=== PATIENT | male | born 1990 | race Caucasian/White ===

== ENCOUNTER 2017-04-01 21:05 | Emergency (ER) | payer OTHER ==
[~2017-04-01] VITALS: Ht 167.6 cm; Wt 90.4 kg
[2017-04-01 21:19] VITALS: BP 148/96; PULSE 118; RESP 18; TEMP 99.3; O2SAT 97
[2017-04-01] MEDS ORDERED: oxyCODONE/ACETAMINOPHEN 5 MG/325 MG TAB PO ONE (21:45)
[2017-04-01] MEDS ORDERED: LIDOCAINE HCL 1% 50 ML VIAL INFIL ONE (21:45)
--- NOTE | 2017-04-01 22:40 | PD ---
HPI Chief Complaint: Skin Problem Time Seen by Provider: 21:40 Travel History International Travel<30 days: No Contact w/Intl Traveler<30days: No Traveled to known affect area: No History of Present Illness HPI Patient is a 26-year-old male who comes in complaining of a painful cyst on his tailbone. He says it started Friday and has become worse. He says he can't sit because it is too painful. There has not been any leakage of fluids. He has not had this before. He says Friday he was feeling unwell and thought maybe had a fever. He did not take his temperature at home. He denies any difficulty with having a bowel movement. PFSH Past Medical History Tetanus Vaccination: Unknown Influenza Vaccination: No Social History Alcohol Use: No Tobacco Use: Yes (2ppd) Substance Use: No Allergies-Medications (Allergen,Severity, Reaction): Coded Allergies: No Known Allergies (Unverified , 04/01/17) Review of Systems General / Constitutional: Positive: Fever HENT: No: Headaches, Lightheadedness Cardiovascular: No: Chest Pain or Discomfort Respiratory: No: Shortness of Breath Gastrointestinal: No: Nausea, Vomiting, Abdominal Pain, Constipation Genitourinary: No: Dysuria Musculoskeletal: No: Pain Skin: Positive Lesions Neurologic: No: Weakness, Dizziness Physical Exam Narrative GENERAL: Awake and alert, in no acute distress. SKIN: Focused skin assessment warm/dry. 4 cm fluctuant mass just above the gluteal cleft, there is surrounding erythema. It is tender to touch. HEAD: Atraumatic. Normocephalic. EYES: Pupils equal and round. No scleral icterus. ENT: Mucous membranes pink and moist. NECK: Trachea midline. No JVD. CARDIOVASCULAR: Regular rate and rhythm. No murmur appreciated. RESPIRATORY: No accessory muscle use. Clear to auscultation. Breath sounds equal bilaterally. MUSCULOSKELETAL: No obvious deformities. No clubbing. No cyanosis. No edema. NEUROLOGICAL: Awake and alert. No obvious cranial nerve deficits. Motor grossly within normal limits. Normal speech. PSYCHIATRIC: Appropriate mood and affect; insight and judgment normal. Data Data Last Documented VS Vital Signs Date Time Temp Pulse Resp B/P Pulse Ox O2 Delivery O2 Flow Rate FiO2 04/01/17 21:32 18 04/01/17 21:19 99.3 118 148/96 97 Orders Oxycodone-Acetamin 5-325 Mg (Percocet (04/01/17 21:45) Lidocaine 1% Inj (50 Ml) (Xylocaine 1% I (04/01/17 21:45) MDM Medical Decision Making Medical Screen Exam Complete: Yes Emergency Medical Condition: Yes Differential Diagnosis Abscess versus pilonidal cyst versus cellulitis Narrative Course Patient is a 26-year-old male comes in complaining of a painful cyst just above his gluteal cleft. Exam shows an abscess with overlying cellulitis. Patient given a Percocet for pain. Incision and drainage performed with large amount of pus expressed. Packing placed. Patient will be discharged with prescription for Keflex and Bactrim. Advised to return in 2 days for packing removal and wound check. Advised to follow-up with his doctor. Advised to return any time for any worsening symptoms. Procedures Procedure Narrative INCISION AND DRAINAGE OF ABSCESS: The area was prepped and was sterilely draped. A subcutaneous wheal of 1 % Xylocaine with a total number 6 mL was used to anesthetize the area properly. A number 11 scalpel was used to make a 1 -cm incision across the area of the abscess. The abscess was drained, complex loculations were broken down, and irrigated with normal saline. Cultures were obtained. Quarter inch iodoform packing was placed in the wound. Sterile dressing applied. Patient advised to have packing removed in two days. Diagnosis Primary Impression: Abscess Patient Instructions: Abscess Incision and Drainage (ED), General Instructions Additional Instructions: Follow up in 2 days for wound check. Keep the area clean and dry. Take all of your antibiotics. Take ibuprofen as needed for pain. Return to the ED at any time for any worsening symptoms. Scripts Sulfamethoxazole-Trimethoprim (Bactrim DS)800-160 Mg Tab1 Tab PO BID #14 TAB Ref 0 Prov:Catina Platt MD 04/01/17 Cephalexin (Keflex)500 Mg Sdl689 Mg PO Q6H 7 Days Ref 0 Prov:Catina Platt MD 04/01/17 Disposition: 01 DISCHARGE HOME Condition: Stable Catina Platt MD April 01, 2017 22:40
[2017-04-01] MEDS ORDERED: BACT800T5 PO (22:48)
[2017-04-01] MEDS ORDERED: CEPH-460 PO (22:48)
[2017-04-01 22:53] VITALS: RESP 18
== END 2017-04-01 23:08 | disposition home or self-care (01) ==
LOC: PHED 21:05
DX: L02.31 Cutaneous abscess of buttock (principal); F17.200 Nicotine dependence, unspecified, uncomplicated
CPT/HCPCS: 10061; 87070; 87185; 87205

== ENCOUNTER 2017-04-03 13:49 | Emergency (ER) | payer OTHER ==
[~2017-04-03] VITALS: Ht 175.3 cm; Wt 91.1 kg
[~2017-04-03 13:49] MED LIST: BACT800T5 PO; CEPH-460 PO
[2017-04-03 13:55] VITALS: BP 122/88; PULSE 96; RESP 16; TEMP 98.3; O2SAT 95
--- NOTE | 2017-04-03 14:16 | PD ---
HPI Chief Complaint: Wound/Suture/Staple Re-Check Time Seen by Provider: 14:00 Travel History International Travel<30 days: No Contact w/Intl Traveler<30days: No Traveled to known affect area: No History of Present Illness HPI 26-year-old male presents to the emergency room for evaluation of abscess follow -up. Patient had a pilonidal abscess drained 2 days ago with packing placed. He was paced on Bactrim and Keflex. States he has been taking medication appropriately. Reports extreme improvement in pain but still some pain with daily activities. Reports continuous drainage. His girlfriend has been changing his dressings daily. He denies fever, chills, nausea, and vomiting. PFSH Past Medical History Medical History: Denies Significant Hx Tetanus Vaccination: > 5 Years Influenza Vaccination: No Past Surgical History Surgical History: No Previous Surgery Social History Alcohol Use: No Tobacco Use: Yes (1/2ppd) Substance Use: No Allergies-Medications (Allergen,Severity, Reaction): Coded Allergies: No Known Allergies (Unverified , 04/03/17) Reported Meds & Prescriptions Reported Meds & Active Scripts Active Bactrim DS (Sulfamethoxazole-Trimethoprim) 800-160 Mg Tab 1 Tab PO BID Keflex (Cephalexin) 500 Mg Cap 500 Mg PO Q6H 7 Days Review of Systems Except as stated in HPI: all other systems reviewed are Neg Physical Exam Narrative GENERAL: Well-nourished, well-developed male in no acute distress. Afebrile. Ambulatory. SKIN: Focused skin assessment warm/dry. There is an indurated area in the intergluteal cleft which measures about 1 cm in diameter with a 1 cm incision that is draining purulent fluid. There is a zone of inflammation around it but no lymphangitis. HEAD: Normocephalic. EYES: No scleral icterus. No injection or drainage. NECK: Supple, trachea midline. No JVD or lymphadenopathy. CARDIOVASCULAR: Regular rate and rhythm without murmurs, gallops, or rubs. RESPIRATORY: Breath sounds equal bilaterally. No accessory muscle use. PSYCHIATRIC: No delusional thought processes. No hallucinations. Data Data Last Documented VS Vital Signs Date Time Temp Pulse Resp B/P Pulse Ox O2 Delivery O2 Flow Rate FiO2 04/03/17 13:55 98.3 96 16 122/88 95 MDM Medical Decision Making Medical Screen Exam Complete: Yes Emergency Medical Condition: Yes Medical Record Reviewed: Yes Differential Diagnosis ID follow-up versus abscess versus cellulitis Narrative Course 26-year-old male presents to the emergency room for abscess follow-up. Patient had packing placed in his pilonidal abscess 2 days ago. No systemic signs of infection. Vital signs stable. Packing removed without difficulty. Dressing placed. Patient told to follow up with primary care physician or return for worsening symptoms. He understands and agrees to plan. Diagnosis Primary Impression: Abscess packing removal Referrals: Primary Care Physician Patient Instructions: Abscess Follow-up (ED), General Instructions Additional Instructions: Rest and drink plenty of fluids. Keep wound clean and dry. Apply triple antibiotic ointment daily. Continued Bactrim as directed, until gone. Continued Keflex as directed, until gone. Follow up with a primary care physician. Return to emergency room for worsening symptoms, as discussed. Disposition: 01 DISCHARGE HOME Condition: Stable Rosa Elena Del Real April 03, 2017 14:16
== END 2017-04-03 14:25 | disposition home or self-care (01) ==
LOC: PHEFT 13:49
DX: L05.01 Pilonidal cyst with abscess (principal); Z48.00 Encounter for change or removal of nonsurgical wound dressing
CPT/HCPCS: 99281